=== PATIENT | female | born 1985 | race Caucasian/White ===

== ENCOUNTER 2017-03-27 16:34 | Emergency (ER) | payer BC, OTHER | END 2017-03-27 17:00 | disposition left against medical advice (07) | LOC: MADERS 16:34 | DX: Z53.21 Procedure and treatment not carried out due to patient leaving prior to being seen by health care provider (principal) ==

== ENCOUNTER 2017-03-28 10:41 | Emergency (ER) | payer BC, OTHER ==
--- NOTE | 2017-03-28 12:08 | RAD ---
LEFT FINGER THREE VIEWS: History: Fifth digit injury. Comparison: None. FINDINGS: No fracture. No malalignment. Soft tissues are unremarkable. No radiopaque foreign object. IMPRESSION: No fracture or malalignment. POS: [facility]
== END 2017-03-28 11:47 | disposition home or self-care (01) ==
LOC: MADERS 10:41
DX: S60.032A Contusion of left middle finger without damage to nail, initial encounter (principal); S60.453A Superficial foreign body of left middle finger, initial encounter; V89.2XXA Person injured in unspecified motor-vehicle accident, traffic, initial encounter

== ENCOUNTER 2020-05-21 18:34 | Emergency (ER) | payer OTHER, SELFPAY ==
[2020-05-21] MEDS ORDERED: Fluorescein Opthalmic Strip ONE (20:42)
[2020-05-21] MEDS ORDERED: Tetracaine 0.5% PF 4 ML BOT ONE (20:42)
[2020-05-21] MEDS ORDERED: Erythromycin Base 0.5% Ophth Oint 3.5 gm Tube ONE (21:02)
[2020-05-21] MEDS ORDERED: Ibuprofen 600 MG TAB ONE (21:13)
== END 2020-05-21 21:18 | disposition home or self-care (01) ==
LOC: MADERS 18:34
DX: S05.01XA Injury of conjunctiva and corneal abrasion without foreign body, right eye, initial encounter (principal); Z87.891 Personal history of nicotine dependence; W22.8XXA Striking against or struck by other objects, initial encounter
CPT/HCPCS: 99283

== ENCOUNTER 2023-11-26 16:27 | Emergency (ER) | payer OTHER ==
[2023-11-26] MEDS ORDERED: Lidocaine 1% PF 5 ML VIAL ONE (17:08)
[2023-11-26] MEDS ORDERED: Bacitracin 1 PK ONE (17:36)
[2023-11-26] MEDS ORDERED: Cephalexin 500 MG CAP ONE (17:36)
== END 2023-11-26 17:46 | disposition home or self-care (01) ==
LOC: MADERS 16:27
DX: S61.412A Laceration without foreign body of left hand, initial encounter (principal); W26.0XXA Contact with knife, initial encounter
CPT/HCPCS: 12001